=== PATIENT | male | born 2000 | race African-American/Black ===

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

== ENCOUNTER 2020-06-18 14:33 | Emergency (ER) | payer SELFPAY ==
[2020-06-18 14:41] VITALS: BP 145/85
--- NOTE | 2020-06-18 15:00 | ER Document Report ---
ED Medical Screen (RME) - General Chief Complaint: Cough Stated Complaint: COUGH,LOSS OF TASTE/SMELL Time Seen by Provider: 06/18/20 14:54 Primary Care Provider: BRITTANIE JACKSON MD [Primary Care Provider] - Follow up as needed Mode of Arrival: Ambulatory Information source: Patient Notes: 19-year-old male presented to ED for cough congestion pressure in his face pres sure in his ears loss of sense of taste and smell since Sunday. He is alert oriented respirations regular nonlabored speaking in full sentences at this time. Lung sounds are clear to auscultation. There is no wax buildup or redness to the tympanic membrane. There does look to be some fluid behind the right tympanic membrane. The patient was evaluated during the global Covid 19 pandemic, and that diagnosis was suspected/considered upon their initial presentation. Their evaluation, treatment and testing was consistent with current guidelines for patients who present with complaints or symptoms that may be related to Covid 19. I have greeted and performed a rapid initial assessment of this patient. A comprehensive ED assessment and evaluation of the patient, analysis of test results and completion of medical decision making process will be conducted by an additional ED providers. TRAVEL OUTSIDE OF THE [place] IN LAST 30 DAYS: No - Related Data Allergies/Adverse Reactions: No Known Allergies Allergy (Verified 12/11/14 22:02) Past Medical History Pulmonary Medical History: Reports: Hx Asthma Psychiatric Medical History: Reports: Hx Attention Deficit Hyperactivity Disorder Past Surgical History: Reports: Other - Dental extraction earlier in the day (posterior) - Immunizations Immunizations up to date: Yes Hx Diphtheria, Pertussis, Tetanus Vaccination: Yes Physical Exam - Vital signs Vitals: Temp Pulse Resp BP Pulse Ox 98.7 F 82 18 145/85 H 99 06/18/20 14:39 06/18/20 14:39 06/18/20 14:39 06/18/20 14:39 06/18/20 14:39 Course - Vital Signs Vital signs: Temp Pulse Resp BP Pulse Ox 98.7 F 82 18 145/85 H 99 06/18/20 14:39 06/18/20 14:39 06/18/20 14:39 06/18/20 14:39 06/18/20 14:39 Doctor's Discharge - Discharge Referrals: BRITTANIE JACKSON MD [Primary Care Provider] - Follow up as needed
--- NOTE | 2020-06-18 16:31 | RADIOLOGY REPORT (SQ) ---
EXAM DESCRIPTION: CHEST SINGLE VIEW IMAGES COMPLETED DATE/TIME: 06/18/2020 4:16 pm REASON FOR STUDY: cough congestion loss of taste and smell COMPARISON: None. EXAM PARAMETERS: NUMBER OF VIEWS: One view. TECHNIQUE: Single frontal radiographic view of the chest acquired. RADIATION DOSE: NA LIMITATIONS: None. FINDINGS: LUNGS AND PLEURA: No opacities, masses or pneumothorax. No pleural effusion. MEDIASTINUM AND HILAR STRUCTURES: No masses. Contour normal. HEART AND VASCULAR STRUCTURES: Heart normal in size. Normal vasculature. BONES: No acute findings. HARDWARE: None in the chest. OTHER: No other significant finding. IMPRESSION: NO ACUTE RADIOGRAPHIC FINDING IN THE CHEST. TECHNICAL DOCUMENTATION: JOB ID: [id number] [email or web address]- All Rights Reserved Reading location - IP/workstation name: [email or web address]
--- NOTE | 2020-06-18 17:53 | ER Document Report ---
Entered by LAURENCE LOO SCRIBE 06/18/20 [id number] Acting as scribe for:ARNULFO RIVERA MD ED General - General Chief Complaint: Cough Stated Complaint: COUGH,LOSS OF TASTE/SMELL Time Seen by Provider: 06/18/20 14:54 Primary Care Provider: BRITTANIE JACKSON MD [ACTIVE STAFF] - Follow up as needed Mode of Arrival: Ambulatory Information source: Patient Notes: This 19-year-old male patient presents to the emergency department today with complaints of loss of taste and smell for the last few days. Patient's mother was positive for COVID-19 3 weeks ago but he states he tried to stay away from her the best he could but he lives with her. Patient mentions that he has had a burning sensation in his nose, chills, his head feels "heavy", and his ears feel clogged. Patient denies any fevers, headache, nausea, cough, or diarrhea. TRAVEL OUTSIDE OF THE [place] IN LAST 30 DAYS: No - Related Data Allergies/Adverse Reactions: No Known Allergies Allergy (Verified 12/11/14 22:02) Past Medical History - General Information source: Patient - Social History Smoking Status: Never Smoker Cigarette use (# per day): No Chew tobacco use (# tins/day): No Smoking Education Provided: No Frequency of alcohol use: None Drug Abuse: None Occupation: Student at [employer] Lives with: Family Family History: Reviewed & Not Pertinent Pulmonary Medical History: Reports: Hx Asthma Psychiatric Medical History: Reports: Hx Attention Deficit Hyperactivity Disorder Past Surgical History: Reports: Other - Dental extraction - Immunizations Immunizations up to date: Yes Hx Diphtheria, Pertussis, Tetanus Vaccination: Yes Review of Systems - Review of Systems Constitutional: See HPI, Other - loss of taste/smell EENT: No symptoms reported Cardiovascular: No symptoms reported Respiratory: No symptoms reported Gastrointestinal: No symptoms reported Genitourinary: No symptoms reported Male Genitourinary: No symptoms reported Musculoskeletal: No symptoms reported Skin: No symptoms reported Hematologic/Lymphatic: No symptoms reported Neurological/Psychological: No symptoms reported -: Yes All other systems reviewed and negative Physical Exam - Vital signs Vitals: Temp Pulse Resp BP Pulse Ox 98.7 F 82 18 145/85 H 99 06/18/20 14:39 06/18/20 14:39 06/18/20 14:39 06/18/20 14:39 06/18/20 14:39 - Notes Notes: Physical Exam: General: Alert, appears well. HEENT: Normocephalic. Atraumatic. PERRL. Extraocular movements intact. Oropharynx clear. Mild nasal sinus congestion. TMs are full but not erythematous. There is no anterior cervical lymphadenopathy. No posterior oropharynx erythema or exudate. Neck: Supple. Non-tender. Respiratory: No respiratory distress. Clear and equal breath sounds bilaterally. Cardiovascular: Regular rate and rhythm. Abdominal: Normal Inspection. Non-tender. No distension. Normal Bowel Sounds. Back: No gross abnormalities. Extremities: Moves all four extremities. Upper extremities: Normal inspection. Normal ROM. Lower extremities: Normal inspection. No edema. Normal ROM. Neurological: Normal cognition. AAOx4. Normal speech. Psychological: Normal affect. Normal Mood. Skin: Warm. Dry. Normal color. Course - Re-evaluation Re-evalutation: 06/18/20 17:22 The patient was evaluated during the global COVID-19 pandemic and that diagnosis was suspected/considered upon their initial presentation. Their evaluation, treatment and testing was consistent with current guidelines for patients who present with complaints or symptoms that may be related to COVID-19. - Vital Signs Vital signs: Temp Pulse Resp BP Pulse Ox 98.7 F 82 18 145/85 H 99 06/18/20 14:39 06/18/20 14:39 06/18/20 14:39 06/18/20 14:39 06/18/20 14:39 Discharge - Discharge Clinical Impression: Agnosia for smell, Agnosia for taste, Encounter for laboratory testing for COVID-19 virus Condition: Stable Disposition: HOME, SELF-CARE Instructions: COVID-19 Guidance for Persons Under Investigation Additional Instructions: Self isolate at home until you get results of the Covid testing. Follow-up with your primary care provider if not improving. RETURN TO THE EMERGENCY ROOM IF ANY NEW OR WORSENING SYMPTOMS. Referrals: BRITTANIE JACKSON MD [ACTIVE STAFF] - Follow up as needed I personally performed the services described in the documentation, reviewed and edited the documentation which was dictated to the scribe in my presence, and it accurately records my words and actions.
== END 2020-06-18 18:00 | disposition home or self-care (01) ==
LOC: ER 14:33
DX: U07.1 COVID-19 (principal); R05 Cough; R43.8 Other disturbances of smell and taste
CPT/HCPCS: 99283; 87635; 71045; C9803